=== PATIENT | female | born 1980 | race Caucasian/White ===

== ENCOUNTER 2018-10-05 16:17 | Emergency (ER) | payer OTHER ==
--- NOTE | 2018-10-05 17:41 | ED ---
Lower Extremity - HPI Summary HPI Summary: 38-year-old female presents with right foot injury about 2 weeks ago. States she had slamming her foot really hard. States she has been having intermittent pain for the past couple weeks. It hurts more when she ambulates more. No numbness or tingling. No previous fracture area. No swelling noted. - History of Current Complaint Chief Complaint: EDExtremityLower Stated Complaint: RT FOOT HURTS PER PT Time Seen by Provider: 10/05/18 16:27 Hx Last Menstrual Period: 02/22/16 Pain Intensity: 5 - Allergies/Home Medications Allergies/Adverse Reactions: Allergies Allergy/AdvReac Type Severity Reaction Status Date / Time No Known Allergies Allergy Verified 10/05/18 16:22 PMH/Surg Hx/FS Hx/Imm Hx Endocrine/Hematology History: Denies: Hx Anticoagulant Therapy Respiratory History: Denies: Hx Asthma - Surgical History Surgery Procedure, Year, and Place: Appendectomy Infectious Disease History: No Infectious Disease History: Denies: Traveled Outside the [place] in Last 30 Days - Family History Known Family History: Positive: Cardiac Disease - Social History Alcohol Use: None Substance Use Type: Reports: None Smoking Status (MU): Never Smoked Tobacco Review of Systems Negative: Fever Negative: Chest Pain Negative: Shortness Of Breath Positive: Myalgia - right foot All Other Systems Reviewed And Are Negative: Yes Physical Exam Triage Information Reviewed: Yes Vital Signs On Initial Exam: Initial Vitals Temp Pulse Resp BP Pulse Ox 98.1 F 75 16 123/95 100 10/05/18 16:19 10/05/18 16:19 10/05/18 16:19 10/05/18 16:19 10/05/18 16:19 Vital Signs Reviewed: Yes Appearance: Positive: Well-Appearing Skin: Positive: Warm, Dry Head/Face: Positive: Normal Head/Face Inspection Eyes: Positive: Normal, Conjunctiva Clear ENT: Positive: Pharynx normal Respiratory/Lung Sounds: Positive: Clear to Auscultation, Breath Sounds Present Cardiovascular: Positive: Normal, RRR Musculoskeletal: Positive: Strength/ROM Intact - right foot, Other - good pulses , sensation grossly intact, mild tenderness right big toe Neurological: Positive: Normal Psychiatric: Positive: Normal Diagnostics - Vital Signs Vital Signs Temp Pulse Resp BP Pulse Ox 10/05/18 16:19 98.1 F 75 16 123/95 100 - Laboratory Lab Statement: Any lab studies that have been ordered have been reviewed, and results considered in the medical decision making process. - Radiology foot Radiology Interpretation Completed By: Radiologist Summary of Radiographic Findings: IMPRESSION: PROBABLE FRACTURE OF THE MEDIAL SESAMOID. RECOMMEND CORRELATION WITH SITE OF PAIN Lower Extremity Course/Dx - Course Course Of Treatment: 38-year-old female presents with right foot injury about 2 weeks ago. States she had slamming her foot really hard. States she has been having intermittent pain for the past couple weeks. It hurts more when she ambulates more. No numbness or tingling. No previous fracture area. No swelling noted. On exam has tenderness mild over right great toe. Neurovascular intact. X-ray shows sesamoid bone fracture. Gave cam walking boot. Will have follow-up with ortho. Patient understands agrees plan. - Diagnoses Differential Diagnosis/HQI/PQRI: Positive: Fracture (Closed), Sprain, Strain Provider Diagnoses: Fracture of sesamoid bone Discharge - Sign-Out/Discharge Documenting (check all that apply): Patient Departure Patient Received Moderate/Deep Sedation with Procedure: No - Discharge Plan Condition: Good Disposition: HOME Patient Education Materials: Foot Fracture in Adults (ED) Referrals: Werner Mejía MD [Medical Doctor] - FRANKLIN CURTIS [Doctor of Podiatric Medicine] - Tramaine Sands MD [Primary Care Provider] - Additional Instructions: wear boot follow up with ortho or podiatry ice, elevate take Tylenol or ibuprofen every 6 hours as needed for pain Return to ED if develop any new or worsening symptoms - Billing Disposition and Condition Condition: GOOD Disposition: Home
[2018-10-05 18:43] VITALS: BP 123/80
== END 2018-10-05 18:57 | disposition home or self-care (01) ==
LOC: ED 16:17
DX: S92.811A Other fracture of right foot, initial encounter for closed fracture (principal); W22.8XXA Striking against or struck by other objects, initial encounter
CPT/HCPCS: 99282

== ENCOUNTER 2018-10-18 15:28 | Emergency (ER) | payer OTHER ==
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
[2018-10-18] MEDS ORDERED: Dexamethasone IV* 4 MG/ML 1 ML (4 MG) IV SLOW PU ONE (17:33)
[2018-10-18] MEDS ORDERED: Ketorolac *IM* INJ* 60 MG/2 ML VIAL IM ONE (17:33)
[2018-10-18 19:15] VITALS: BP 143/87
== END 2018-10-18 19:13 | disposition home or self-care (01) ==
LOC: ED 15:28
DX: M54.2 Cervicalgia (principal); V43.52XA Car driver injured in collision with other type car in traffic accident, initial encounter; Y92.414 Local residential or business street as the place of occurrence of the external cause
CPT/HCPCS: 71046; 72125; 96372; 96374; 99282; J1885

== ENCOUNTER 2018-12-07 06:59 | Day surgery (SDC) | payer OTHER ==
[~2018-12-07 06:59] MED LIST: Buffered Lidocaine 1% SYRIN* 1 ML/SYRINGE INTRADERM ONE; Dexamethasone IV* 4 MG/ML 1 ML (4 MG) IV SLOW PU ONE; Famotidine IV* 10 MG/ML 2 ML (20 mg) IV ONE; Lactated Ringers 1000 ML Bag* 1,000 ML IV SCH
[2018-12-07] MEDS ORDERED: ceFAZolin 2 GM in NS PREMIX(*) 2 GM/100 ML BAG IVPB ONE (07:46)
[2018-12-07] MEDS ORDERED: Famotidine IV* 10 MG/ML 2 ML (20 mg) ONE (07:46)
[2018-12-07] MEDS ORDERED: Dexamethasone IV* 4 MG/ML 1 ML (4 MG) ONE (07:46)
[2018-12-07] MEDS ORDERED: fentaNYL* 50 MCG/ML 2 ML VIAL (100 MCG VIAL) ONE (09:17)
[2018-12-07] MEDS ORDERED: Ondansetron INJ* 2 MG/ML VIAL ONE (09:17)
[2018-12-07] MEDS ORDERED: Ketorolac INJ* 30 MG/ML 1 ML VIAL ONE (09:17)
[2018-12-07] MEDS ORDERED: Propofol* 10 MG/ML 20 ML BTL ONE (09:17)
[2018-12-07] MEDS ORDERED: Midazolam* 1 MG/ML 5 ML VIAL (5 MG) ONE (09:17)
[2018-12-07] MEDS ORDERED: Lidocaine 1% INJ* 10 MG/ML 30 ML SDV ONE (10:09)
[2018-12-07] MEDS ORDERED: Bupivacaine 0.25% SDV PF* 10 ML VIAL INJ ONE (10:09)
[2018-12-07] MEDS ORDERED: Lidocaine 2% PF * 5 ML VIAL ONE (10:39)
[2018-12-07] MEDS ORDERED: Naloxone* 0.4 MG/ML 1 ML VIAL IV PRN (11:02)
[2018-12-07] MEDS ORDERED: fentaNYL* 50 MCG/ML 2 ML VIAL (100 MCG VIAL) IV PRN (11:02)
[2018-12-07] MEDS ORDERED: DiMENhydriNATE IV* 50 MG/ML VIAL IV PUSH PRN (11:02)
[2018-12-07] MEDS ORDERED: Ondansetron INJ* 2 MG/ML VIAL IV PRN (11:02)
[2018-12-07] MEDS ORDERED: oxyCODONE/Acetamin 5/325 MG* TAB PO PRN (11:02)
[2018-12-07 12:35] VITALS: BP 110/79
--- NOTE | 2018-12-07 16:09 | OP ---
OPERATIVE REPORT: DATE OF OPERATION: 12/07/18 - [facility] DATE OF : 84 SURGEON: Waqas Childress DPM ANESTHESIOLOGIST: Stephen Carmona MD ANESTHESIA: MAC, local. PRE-OP DIAGNOSIS: Nondisplaced fracture of the right tibial sesamoid bone. POST-OP DIAGNOSIS: Nondisplaced fracture of the right tibial sesamoid bone. OPERATIVE PROCEDURE: Excision of the right tibial sesamoid. ESTIMATED BLOOD LOSS: Less than 10 cc. IV FLUIDS: LR 1000 cc. DRAINS: None. SPECIMEN: Fractured right tibial sesamoid. DESCRIPTION OF PROCEDURE: The patient was taken to the operating room and was placed in the supine position. Time-out was called and OR team agreed. The right foot was then blocked with 10 cc of 1% lidocaine plain in the Wall block fashion at the base of the first metatarsal. The foot was then prepped and draped in sterile manner. The right foot was exsanguinated with an Esmarch bandage and the cuff was inflated to 250 mmHg. Attention was then paid to the plantar aspect of the right first metatarsophalangeal joint where there was a painful fractured tibial sesamoid. I went ahead and made an incision on the medial side of the first metatarsophalangeal joint on the nonweightbearing part. This was followed by sharp and blunt dissection starting from the epidermis, dermis, subcutaneous tissue and down to deep fascia. I went ahead and incised the deep fascia and I entered the capsule where I was able to identify the fractured right tibial sesamoid. I went ahead and resected the right tibial sesamoid careful as not to injure the flexor tendons. Once it was determined that I was able to remove it, I inspected the flexor tendon and it was found to be in good condition. It was not transected. It was intact. Once I determined that that to be the case, I went ahead and eradicated the site and closed the wound in a layered anatomical fashion. The deep layers were closed with 3-0 Vicryl and the skin was closed with 4-0 nylon in an interrupted fashion. I injected the site with 8 cc of 0.25% Marcaine plain and 2 cc or 8 mg of dexamethasone phosphate. This completes the procedure. I placed the foot in a dry sterile dressing. The cuff was deflated and there was immediate capillary refill in all 5 toes. No signs of ischemia. There was good perfusion noted. The patient was taken to Recovery in stable condition and was later discharged in stable condition as well. I will see her on Monday because of the holiday. [id number]/[facility] #: [id number] REGINE
== END 2018-12-07 12:37 | disposition home or self-care (01) ==
LOC: OR 06:59
PROVIDERS: ATTEND Podiatrist
DX: S92.811A Other fracture of right foot, initial encounter for closed fracture (principal); X58.XXXA Exposure to other specified factors, initial encounter; Y92.9 Unspecified place or not applicable
CPT/HCPCS: 81025; 88305; 88311; J0690; J1100; J1885; J2250; J2405; J2704; J3010; J3490

== ENCOUNTER 2019-07-01 15:24 | Emergency (ER) | payer BC, OTHER ==
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
[2019-07-01 16:02] VITALS: BP 132/88
== END 2019-07-01 16:39 | disposition home or self-care (01) ==
LOC: UCEAST 15:24
DX: M54.42 Lumbago with sciatica, left side (principal); N39.0 Urinary tract infection, site not specified; Z91.040 Latex allergy status
CPT/HCPCS: 81003; 84702; 87086; 99212; G0463

== ENCOUNTER 2019-08-01 17:22 | Emergency (ER) | payer BC ==
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
[2019-08-01 17:35] VITALS: BP 122/68
== END 2019-08-01 18:15 | disposition home health service (06) ==
LOC: UCEAST 17:22
DX: M54.5 Low back pain (principal); R10.30 Lower abdominal pain, unspecified; Z32.02 Encounter for pregnancy test, result negative; Z91.040 Latex allergy status
CPT/HCPCS: 81003; 84702; 93005; 99212; G0463

== ENCOUNTER 2019-08-01 18:36 | Emergency (ER) | payer BC ==
[2019-08-01] MEDS ORDERED: Lidocaine PATCH 5%* 1 PATCH TRANSDERM ONE (18:54)
[2019-08-01] MEDS ORDERED: Cyclobenzaprine TAB* 10 MG PO ONE (18:54)
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
[2019-08-01 19:50] LABS: ABS Lymphocytes 0.8 10^3/ul (1.0-4.8); ABS Monocytes 0.2 10^3/ul (0-0.8); ABS Neutrophils 11.3 10^3/ul (1.5-7.7); Eosinophil % 0.1 %; Hematocrit 42 % (35-47); Hemoglobin 14.3 g/dL (12.0-16.0); Lymphocyte % 6.3 %; Mean Corpuscular HGB Conc 35 g/dL (31-36); Mean Corpuscular Hemoglobin 31 pg (27-31); Mean Corpuscular Volume 89 fL (80-97); Mean Platelet Volume 8.1 fL (7.4-10.4); Nucleated Red Blood Cells % 0.1; Platelet Count 204 10^3/uL (150-450); Red Blood Count 4.68 10^6 /uL (3.70-4.87); Red Cell Distribution Width 13 % (10-15); White Blood Count 12.4 10^3/uL (3.5-10.8)
[2019-08-01 20:07] LABS: Albumin 4.5 g/dL (3.2-5.2); Albumin/Globulin Ratio 1.6 (1-3); BUN/Creatinine Ratio 15.7 (8-20); C Reactive Protein 3.42 mg/L (<8.01); Calcium 9.3 mg/dL (8.6-10.3); EGFR African American 114.6 (>60); EGFR Non-African American 94.7 (>60); Globulin 2.9 g/dL (2-4); Magnesium 1.9 mg/dL (1.9-2.7); Potassium 3.8 mmol/L (3.5-5.0); Total Bilirubin 0.6 mg/dL (0.2-1.0); Total Protein 7.4 g/dL (6.4-8.9)
[2019-08-01] MEDS ORDERED: Ketorolac INJ* 30 MG/ML 1 ML VIAL IM ONE (20:22)
[2019-08-01] MEDS ORDERED: HYDROcodone/ACETAMIN 5-325 MG* 1 TAB PO ONE (20:22)
[2019-08-01] MEDS ORDERED: Dexamethasone TAB* 4 MG PO ONE (20:22)
[2019-08-01] MEDS ORDERED: Lidocaine Patch REMOVE* 1 NOTE MISC SCH (21:00)
[2019-08-01 21:03] VITALS: BP 115/71
[2019-08-01 21:06] LABS: Urine Appearance Clear; Urine Bilirubin Negative (Negative); Urine Blood Negative (Negative); Urine Color Yellow; Urine Glucose Negative (Negative); Urine Ketones Trace (Negative); Urine Nitrite Negative (Negative); Urine Protein Negative (Negative); Urine Specific Gravity 1.011 (1.010-1.030); Urine Urobilinogen Negative (Negative)
== END 2019-08-01 21:00 | disposition home or self-care (01) ==
LOC: ED 18:36
DX: R55 Syncope and collapse (principal); M54.9 Dorsalgia, unspecified
CPT/HCPCS: 36415; 80053; 81003; 83605; 83735; 84484; 85025; 86140; 93005; 96372; 99283; A9270-GY; J1885; J8540